=== PATIENT | female | born 1970 | race Caucasian/White ===

== ENCOUNTER 2018-11-20 13:31 | Emergency (ER) | payer OTHER ==
[~2018-11-20] VITALS: Ht 154.9 cm; Wt 100.0 kg
[2018-11-20 13:41] VITALS: BP 141/81
--- NOTE | 2018-11-20 13:44 | NUR ---
urine cup handed to pt for sample
--- NOTE | 2018-11-20 13:51 | NUR ---
PT BIB SELF FOR LOWER ABD PAIN THAT RADIATES TO BACK FOR 3 DAYS W/ URINARY FREQUENCY. PT STATES SHE HAS BM BUT THEY HAVE "NOT BEEN THAT MUCH". ABD IS ROUND, SOFT, NON TENDER, PT C/O MORE PAIN TO RT LOWER QUADRANT. PT LAYING IN BED POSITIONED TO COMFORT. PMH HTN
[2018-11-20] MEDS ORDERED: NACL 0.9% 1,000 ML IV SCH (14:03)
[2018-11-20] MEDS ORDERED: KETOROLAC 30 MG/ML VIAL IVP ONE (14:05)
[2018-11-20] MEDS ORDERED: ONDANSETRON 4 MG/2 ML VIAL IVP ONE (14:05)
--- NOTE | 2018-11-20 14:19 | NUR ---
LAB AT BEDSIDE TO COLLECT BLOOD SAMPLES.
[2018-11-20 14:26] LABS: BASOPHILS % (AUTO) 0.4 % (0.0-2.0); EOSINOPHILS # (AUTO) 0.1 K/uL (0-0.4); EOSINOPHILS % (AUTO) 1.5 % (0.0-4.0); HEMATOCRIT 41.7 % (36-48); HEMOGLOBIN 13.6 g/dL (12.0-16.0); LYMPHOCYTES # (AUTO) 2.9 K/uL (2.5-16.5); LYMPHOCYTES % (AUTO) 30.6 % (20.5-51.1); MEAN CORPUSCULAR HEMOGLOBIN 29 pg (27-31); MEAN CORPUSCULAR HGB CONC 33 g/dL (33-37); MEAN CORPUSCULAR VOLUME 87.7 fL (80-94); MONOCYTES # (AUTO) 0.7 K/uL (0.8-1.0); NEUTROPHILS # (AUTO) 5.7 K/uL (1.8-7.7); NEUTROPHILS % (AUTO) 60.5 % (42.2-75.2); PLATELET COUNT (AUTO) 238 K/uL (140-450); RED BLOOD CELL COUNT(AUTO) 4.76 MIL/uL (4.20-5.40); RED CELL DISTRIBUTION WIDTH 13.7 % (11.6-13.7); WHITE BLOOD COUNT (AUTO) 9.4 K/uL (4.8-10.8)
[2018-11-20 14:37] LABS: ANION GAP 12.7 (8-16); CARBON DIOXIDE 27.1 mmol/L (21-32); CREATININE 1.1 mg/dL (0.6-1.3); POTASSIUM 3.8 mmol/L (3.5-5.1)
[2018-11-20 14:43] LABS: ALBUMIN 3.7 g/dL (3.4-5.0); TOTAL BILIRUBIN 0.3 mg/dL (0.0-1.0)
[2018-11-20 14:45] LABS: APPEARANCE,URINE HAZY (CLEAR); BILIRUBIN,URINE 1+ (NEGATIVE); BLOOD, URINE 3+ (NEGATIVE); COLOR,URINE YELLOW (YELLOW); LEUKOCYTE ESTERASE ,URINE 1+ (NEGATIVE); NITRITE, URINE NEGATIVE (NEGATIVE); UGLUCOSE NEGATIVE (NEGATIVE)
[2018-11-20 14:55] LABS: RBC,URINE TOO NUMEROUS TO COUN /HPF (0-5); WBC,URINE 16-25 (MOD) /HPF (0-5)
[2018-11-20 15:40] VITALS: BP 127/75
--- NOTE | 2018-11-20 15:40 | NUR ---
Patient discharged with v/s stable. Written and verbal after care instructions given and explained. Patient alert, oriented and verbalized understanding of instructions. Ambulatory with steady gait. All questions addressed prior to discharge. ID band removed. Patient advised to follow up with PMD. Rx of Cipro, Zofran, [place], and Motrin given. Patient educated on indication of medication including possible reaction and side effects. Opportunity to ask questions provided and answered.
== END 2018-11-20 15:40 | disposition home or self-care (01) ==
LOC: MED 13:31
DX: N39.0 Urinary tract infection, site not specified (principal); I10 Essential (primary) hypertension; Z98.890 Other specified postprocedural states
CPT/HCPCS: 36415; 74176; 80053; 81001; 81025; 83690; 85025; 87086; 96374; 96375; 99284; J1885; J2405; J7030

== ENCOUNTER 2023-09-03 17:12 | Emergency (ER) | payer OTHER ==
[~2023-09-03] VITALS: Ht 154.9 cm; Wt 90.7 kg
[2023-09-03 17:39] VITALS: BP 123/78; PULSE 97; RESP 18; TEMP 98.5; O2SAT 98
[2023-09-03] MEDS: NACL 0.9% 1,000 ML IV SCH (18:40)
[2023-09-03 19:00] LABS: BASOPHILS # (AUTO) 0.1 K/uL (0.00-0.22); BASOPHILS % (AUTO) 0.7 % (0.0-2.0); EOSINOPHILS # (AUTO) 0.1 K/uL (0-0.4); EOSINOPHILS % (AUTO) 0.5 % (0.0-4.0); HEMATOCRIT 43.5 % (36-48); HEMOGLOBIN 14.7 g/dL (12.0-16.0); LYMPHOCYTES # (AUTO) 3.5 K/uL (2.5-16.5); LYMPHOCYTES % (AUTO) 25.7 % (20.5-51.1); MEAN CORPUSCULAR HEMOGLOBIN 29 pg (27-31); MEAN CORPUSCULAR HGB CONC 34 g/dL (33-37); MEAN CORPUSCULAR VOLUME 86.5 fL (80-94); MONOCYTES % (AUTO) 7.3 % (1.7-9.3); NEUTROPHILS # (AUTO) 9.1 K/uL (1.8-7.7); NEUTROPHILS % (AUTO) 65.8 % (42.2-75.2); PLATELET COUNT (AUTO) 227 K/uL (140-450); RED BLOOD CELL COUNT(AUTO) 5.03 MIL/uL (4.20-5.40); RED CELL DISTRIBUTION WIDTH 13.8 % (11.6-13.7); WHITE BLOOD COUNT (AUTO) 13.8 K/uL (4.8-10.8)
[2023-09-03 19:09] LABS: ANION GAP 14.3 (8-16); CARBON DIOXIDE 27.2 mmol/L (21-32); CREATININE 0.7 mg/dL (0.6-1.3); POTASSIUM 3.5 mmol/L (3.5-5.1)
[2023-09-03] MEDS ORDERED: AMPICILLIN/SULBACTAM 3 GM VIAL ONE (19:12)
[2023-09-03 19:17] LABS: ALANINE AMINOTRANSFERASE 23 U/L (12-78); ALBUMIN 3.7 g/dL (3.4-5.0); ALKALINE PHOSPHATASE 75 U/L (50-136); ASPARTATE AMINOTRANSFERASE 14 U/L (15-37); BILIRUBIN,DIRECT 0.1 mg/dL (0.0-0.3); TOTAL BILIRUBIN 0.6 mg/dL (0.0-1.0); TOTAL PROTEIN, SERUM 7.8 g/dL (6.4-8.2)
[2023-09-03 19:18] LABS: LACTIC ACID 1.4 mmol/L (0.4-2.0)
[2023-09-03 19:22] LABS: INR 0.99 (0.8-1.2); PARTIAL THROMBOPLASTIN TIME 27.8 secs (22-35.6); PROTHROMBIN TIME 10.4 secs (10.8-13.4)
[2023-09-03] MEDS: AMPICILLIN/SULBACTAM 3 GM in NACL 0.9% 100 ML IV ONE (19:25)
[2023-09-03] MEDS: KETOROLAC 30 MG/ML VIAL IVP ONE (19:26)
[2023-09-03] MEDS: ONDANSETRON 4 MG/2 ML VIAL IVP ONE (19:26)
[2023-09-03 19:29] VITALS: BP 120/78; PULSE 96; RESP 18; TEMP 98; O2SAT 98
[2023-09-03 20:59] LABS: APPEARANCE,URINE CLEAR (CLEAR); BILIRUBIN,URINE NEGATIVE (NEGATIVE); BLOOD, URINE NEGATIVE (NEGATIVE); COLOR,URINE YELLOW (YELLOW); LEUKOCYTE ESTERASE ,URINE NEGATIVE (NEGATIVE); NITRITE, URINE NEGATIVE (NEGATIVE); PROTEIN,URINE NEGATIVE (NEGATIVE); UGLUCOSE NEGATIVE (NEGATIVE); UROBILINOGEN,URINE 0.2 EU/dL (0.2 - 1)
[2023-09-03] MEDS ORDERED: CIPR500T4 PO (21:26)
[2023-09-03] MEDS ORDERED: METR-435 PO (21:26)
[2023-09-03] MEDS ORDERED: ACET-8905 PO (21:26)
== END 2023-09-03 21:37 | disposition home or self-care (01) ==
LOC: MED 17:12
DX: K57.32 Diverticulitis of large intestine without perforation or abscess without bleeding (principal); R11.10 Vomiting, unspecified; E11.9 Type 2 diabetes mellitus without complications; I10 Essential (primary) hypertension; Z79.899 Other long term (current) drug therapy
CPT/HCPCS: 36415; 71045; 74176; 80048; 80076; 81003; 81025; 83605; 83880; 84484; 85025; 85610; 85730; 87040; 87086; 93005; 96361; 96365; 96375; 99285; J0295; J1885; J2405; J7030